=== PATIENT | female | born 1980 | race Caucasian/White ===

== ENCOUNTER 2016-03-07 11:35 | Outpatient (RCR) | payer MEDICARE ==
--- OUTSIDE RECORDS SUMMARY | 2016-03-03 10:54 | XMS REPORT | Continuity of Care Document ---
Author Author [facility] Organization [facility] Address Unknown Phone Unavailable Care Team Providers Care Modeler Name Role Phone TERA BOYD DO PCP Insurance Providers Payer Name Policy Number Subscriber Name Relationship [employer] [id number] Jori Cortes 17 Self / Same As Patient Advance Directives Directive Response Recorded Date/Time Advance Directives No 10/17/15 2:36pm Organ Donor Yes 10/17/15 2:36pm Resuscitation Status Full Code 10/17/15 2:36pm Problems Active Problems Medical Problem Onset Date Status Contusion, multiple sites Unknown Acute Headache Unknown Acute Migraine Unknown Acute Minor head injury without loss of consciousness Unknown Acute Minor head injury without loss of consciousness Unknown Acute Sprain of fourth finger of right hand Unknown Acute Tension type headache Unknown Acute Medications Current Home Medications Medication Dose Units Route Directions Days/Qty Instructions Start Date Tizanidine Hcl 4 Mg 4 Mg Oral Three Times A Day 11/09/12 Simvastatin 40 Mg 40 Mg Oral Bedtime 11/09/12 Duloxetine Hcl 60 Mg 60 Mg Oral Twice A Day 11/09/12 Metoprolol Succinate (Toprol Xl) 50 Mg 50 Mg Oral Daily 11/09/12 Amitriptyline Hcl 10 Mg 10 Mg Oral Bedtime 11/14/12 Levothyroxine Sodium 125 Mcg 125 Mcg Oral Daily 10/17/15 Omeprazole 40 Mg 40 Mg Oral Twice A Day 10/17/15 [Bcp] 1 Tab Oral Daily 10/17/15 Hydrocodone/Acetaminophen 1 Each 1-2 Each Oral Every 6 Hours as needed for Pain 10/17/15 Oxybutynin Chloride 5 Mg 5 Mg Oral Daily 10/17/15 Topiramate 50 Mg 50 Mg Oral Bedtime 10/17/15 Loratadine 10 Mg 10 Mg Oral Bedtime 10/17/15 Past Home Medications Medication Directions Ordered Status Tramadol Hcl 50 Mg Tab, 50 Mg Oral Three Times A Day 11/09/12 Discontinued [Bcp] , 11/09/12 Discontinued Levothyroxine Sodium (Levothroid) 50 Mcg Tablet, 75 Mcg Oral Daily 11/09/12 Discontinued Omeprazole 20 Mg Tablet.dr, 20 Mg Oral Daily 11/09/12 Discontinued Interferon Beta-1A/Albumin 44 Mcg/0.5 Ml Pen.injctr, 88 Mcg Sub-Q Three Times A Week 11/09/12 Discontinued Ethinyl Estradiol/Drospirenone 1 Each Tablet, 1 Each Oral 11/14/12 Discontinued Propoxyphene Hcl/Acetaminophen 1 Tab Tablet, 0 Oral Every 4HRS 11/14/12 Discontinued Naproxen Sodium 550 Mg Tablet, 550 Mg Oral Twice A Day 11/14/12 Discontinued Acetaminophen/Hydrocodone Bitart 1 Each Tablet, 1 - 2 Each Oral Every 6 Hours as needed 02/02/13 Discontinued Butalb/Acetaminophen/Caffeine (Fioricet) 1 Each Tablet, 1 Each Oral Q4hr Prn 11/27/13 Discontinued [Butoxeran] , Unknown Dose Oral Daily 03/11/14 Discontinued Tramadol Hcl 50 Mg Tablet, 50 Mg Oral Every 4HRS as needed for Pain 08/09/14 Discontinued Social History Social History Problem Response Recorded Date/Time Alcohol Use Rarely Uses 10/17/2015 2:36pm Recreational Drug Use No 10/17/2015 2:36pm Recent Foreign Travel No 10/17/2015 2:36pm Recent Infectious Disease Exposure No 10/17/2015 2:36pm Hospitalization with Isolation Denies 10/17/2015 2:36pm Smoking Status Former Smoker 10/17/2015 2:51pm Query Response Start Date Stop Date Smoking Status Former Smoker Hospital Discharge Instructions No hospital discharge instructions. Plan of Care Discharge Date 10/17/15 4:29pm Prescriptions See Medication Section Functional Status No functional status results. Allergies, Adverse Reactions, Alerts No known allergies. Immunizations No immunization records. Vital Signs Acute Vital Signs Vital Response Date/Time Temperature (Fahrenheit) 98.0 degrees F (97.6 - 99.5) 10/07/2015 9:38am Temperature (Calculated Celsius) 36.95794 degrees C (36.4 - 37.5) 10/07/2015 9:38am Temperature Source Tympanic 10/07/2015 9:38am Pulse Rate (adult) 102 bpm (60 - 90) 10/17/2015 2:36pm Respiratory Rate 18 bpm (12 - 24) 10/07/2015 9:38am O2 Sat by Pulse Oximetry 95 % (88 - 100) 10/17/2015 2:36pm Blood Pressure 131/81 mm Hg 10/17/2015 2:36pm Blood Pressure Mean 103 mm Hg 10/07/2015 9:38am Height (Feet) 5 feet 10/17/2015 2:36pm Height (Inches) 4.00 inches 10/17/2015 2:36pm Height (Calculated Centimeters) 162.338446 cm 10/17/2015 2:36pm Weight (Pounds) 256 pounds 10/17/2015 2:36pm Weight (Ounces) 0.0 oz 10/17/2015 2:36pm Weight (Calculated Grams) 942731.648 gm 10/17/2015 2:36pm Weight (Calculated Kilograms) 116.169723 kilograms 10/17/2015 2:36pm Calculated BMI 42.60 10/17/2015 2:36pm Results Pending Laboratory Results Test Name Collection Date/Time Procedures Procedure Status Date Provider(s) FNA W/IMAGE Completed 10/07/15 JULISA WEST MD Encounters Encounter Location Arrival/Admit Date Discharge/Depart Date Attending Provider Departed Clinic [facility] 10/17/15 2:29pm 10/17/15 4: 29pm WANDA REYES MD Registered Clinic [facility] 10/07/15 8:40am WANDA REYES MD
[2016-03-03 11:35] VITALS: BP 107/57
[2016-03-03] MEDS: CATHETER FLUSH 10 ML SYR IV PRN (12:38)
[2016-03-03] MEDS: Solu-MEDROL 1000 MG/NS 100 ML (DAILY) IV SCH ×2 (12:38)
[2016-03-03] MEDS: PANTOPRAZOLE 40 MG (PROTONIX) TAB PO SCH (12:39)
[2016-03-03 12:50] VITALS: BP 107/57
[2016-03-03 12:51] VITALS: BP 107/57
[2016-03-03] MEDS: inSUlin (REGULAR) HUMAN 1 UNIT/0.01 ML (CHARGE PER UNIT) SC SCH (14:10)
[2016-03-04 13:45] VITALS: BP 110/74
[2016-03-04] MEDS: PANTOPRAZOLE 40 MG (PROTONIX) TAB PO SCH (14:05)
[2016-03-04] MEDS: CATHETER FLUSH 10 ML SYR IV PRN (14:05)
[2016-03-04] MEDS: Solu-MEDROL 1000 MG/NS 100 ML (DAILY) IV SCH ×2 (14:06)
[2016-03-04] MEDS: inSUlin (REGULAR) HUMAN 1 UNIT/0.01 ML (CHARGE PER UNIT) SC SCH (14:06)
[2016-03-04 15:09] VITALS: BP 110/74
[2016-03-04 16:00] VITALS: BP 112/74
[2016-03-05 09:00] VITALS: BP 120/76
[2016-03-05] MEDS: inSUlin (REGULAR) HUMAN 1 UNIT/0.01 ML (CHARGE PER UNIT) SC SCH (09:05)
[2016-03-05] MEDS: CATHETER FLUSH 10 ML SYR IV PRN ×2 (09:06→10:30)
[2016-03-05] MEDS: PANTOPRAZOLE 40 MG (PROTONIX) TAB PO SCH (09:10)
[2016-03-05] MEDS: Solu-MEDROL 1000 MG/NS 100 ML (DAILY) IV SCH ×2 (09:29)
[2016-03-05 11:00] VITALS: BP 147/91
[2016-03-05 11:07] VITALS: BP 147/91
[2016-03-06 11:10] VITALS: BP 126/89
[2016-03-06] MEDS: PANTOPRAZOLE 40 MG (PROTONIX) TAB PO SCH (11:35)
[2016-03-06] MEDS: Solu-MEDROL 1000 MG/NS 100 ML (DAILY) IV SCH ×2 (11:35)
[~2016-03-07] VITALS: Ht 162.6 cm; Wt 116.1 kg
[~2016-03-07 11:35] MED LIST: ACHD5005 PO; ALPR0.25 PO; AMIT150T PO; AMT10T PO; ASPI-992 PO; BCP PO; BUTA-234 PO; CATHETER FLUSH 10 ML SYR IV PRN; CATHETER FLUSH 10 ML SYR IV SCH; CHOL5000 PO; DULO60CA6 PO; ETHI1TAB19 PO; HYDR-3454 PO; HYDR-3812 PO; HYDR-3816 PO; HYDR1TAB PO; INTE44PE SQ; KETO10TA PO; LEVO125T6 PO; LORA10TA76 PO; LVT.05T PO; MELA1TAB10 PO; METO-272 PO; MONT10TA24 PO; NAPR550T PO; NORE0.352 PO; OMEP20TA2 PO; OMEP40CA36 PO; OXYB5TAB PO; OXYB5TAB9 PO; PROP1TAB77 PO; SILV25CR TP; SIMV20TA3 PO; SIMV40TA4 PO; TIZA4CAP PO; TIZA4TAB3 PO; TOPI50CA5 PO; TOPI50TA13 PO; TRAM50TA2 PO; TRM50T PO; [UNRECOGNIZED DRUG - OTHER] PO; bcp
[2016-03-07 11:37] VITALS: BP 125/82
[2016-03-07] MEDS: PANTOPRAZOLE 40 MG (PROTONIX) TAB PO SCH (11:50)
[2016-03-07] MEDS: Solu-MEDROL 1000 MG/NS 100 ML (DAILY) IV SCH ×2 (11:50)
== END 2016-06-01 | disposition home or self-care (01) ==
LOC: SDC 11:35
PROVIDERS: ATTEND Psychiatry & Neurology Neurology
DX: G35 Multiple sclerosis (principal)
CPT/HCPCS: 82962; 96365

== ENCOUNTER → 2016-08-27 | Outpatient (CLI) | payer MEDICARE ==
[~2016-08-27] MED LIST changes: -CATHETER FLUSH 10 ML SYR IV PRN; -CATHETER FLUSH 10 ML SYR IV SCH
--- NOTE | 2016-08-27 17:53 | Diagnostic Imaging Report ---
INDICATION: Cough. EXAMINATION: PA and lateral views of the chest. FINDINGS: The heart size and vascularity are normal. Lungs are clear. There is no effusion. There is no acute bony abnormality. IMPRESSION: 1. No acute abnormality is seen. 2. There is no change from 11/19/13. Dictated by: Dictated on workstation # [id number]
== END ==
LOC: RAD 17:30
PROVIDERS: ATTEND Family Medicine
DX: R05 Cough (principal)
CPT/HCPCS: 71020

== ENCOUNTER 2016-09-22 09:25 | Outpatient (RCR) | payer MEDICARE, MEDICAID ==
[2016-09-20] MEDS: Solu-MEDROL 1000 MG/NS 100 ML (DAILY) IV SCH ×2 (15:20)
[2016-09-20] MEDS: CATHETER FLUSH 10 ML SYR IV PRN (15:20)
[2016-09-20 16:38] VITALS: BP 132/90
[2016-09-21] MEDS: CATHETER FLUSH 10 ML SYR IV PRN (10:26)
[2016-09-21] MEDS: Solu-MEDROL 1000 MG/NS 100 ML (DAILY) IV SCH ×2 (10:26)
[2016-09-21 11:43] VITALS: BP 120/80
[~2016-09-22] VITALS: Ht 162.6 cm; Wt 116.1 kg
[2016-09-22 09:25] VITALS: BP 155/80
[2016-09-22 09:30] VITALS: BP 155/80
[2016-09-22] MEDS: CATHETER FLUSH 10 ML SYR IV PRN (09:32)
[2016-09-22] MEDS: Solu-MEDROL 1000 MG/NS 100 ML (DAILY) IV SCH ×2 (09:32)
[2016-09-22 10:35] VITALS: BP 155/80
== END 2016-12-19 | disposition home or self-care (01) ==
LOC: SDC 09:25
PROVIDERS: ATTEND Psychiatry & Neurology Neurology
DX: G35 Multiple sclerosis (principal)
CPT/HCPCS: 96365

== ENCOUNTER → 2016-10-01 | Outpatient (CLI) | payer MEDICARE, MEDICAID ==
[~2016-10-01] MED LIST changes: +GADOBUTROL 15 MMOL/15 ML (GADAVIST) VIAL IV ONE
--- NOTE | 2016-10-01 11:26 | Diagnostic Imaging Report ---
PROCEDURE: MR imaging of the brain with and without contrast. TECHNIQUE: Multiplanar, multisequence MR imaging of the brain was performed with and without contrast. INDICATION: Multiple sclerosis. Worsening one month ago. Right-sided numbness. CONTRAST: 11 mL of Gadavist is administered intravenously. COMPARISON: No prior similar studies are available for comparison. FINDINGS: There is no diffusion restriction to suggest an acute infarct or other diffusion abnormality. The brain parenchyma demonstrates minimal periventricular subcentimeter T2 hyper intense lesions, which appear to involve as well the corpus callosum itself as demonstrated on sagittal FLAIR images, compatible with the provided history of multiple sclerosis. There is no significant surrounding edema or associated enhancement with these lesions however. There is no infratentorial lesion. A 3 mm juxtacortical lesion however is seen in the left frontal lobe. The total number of lesions counted on the sagittal T2 FLAIR images are 12, all are supratentorial. The pituitary gland is normal in size. No hypothalamic of pineal region mass. IMPRESSION: Multiple subcentimeter mostly periventricular T2 hyperintense lesions seen in the supratentorial white matter compatible with provided history of multiple sclerosis. No enhancing lesion seen. Dictated by: Dictated on workstation # [id number]
== END ==
LOC: RAD 09:07
PROVIDERS: ATTEND Psychiatry & Neurology Neurology
DX: G35 Multiple sclerosis (principal)
CPT/HCPCS: 70553

== ENCOUNTER 2018-09-07 18:27 | Emergency (ER) | payer MEDICARE, MEDICAID ==
[~2018-09-07] VITALS: Ht 167.6 cm; Wt 95.3 kg
[~2018-09-07 18:27] MED LIST changes: -GADOBUTROL 15 MMOL/15 ML (GADAVIST) VIAL IV ONE; +HYDR-34 PO; -HYDR-3454 PO; +HYDR-3455 PO; -HYDR-3812 PO; -HYDR-3816 PO
--- NOTE | 2018-09-07 19:23 | NUR ---
while in waiting room patient vomited. Pt is very unsteady on feet. Pt laying down in bed with lights off and towel over head for comfort. at bedside
[2018-09-07] MEDS ORDERED: PROCHLORPERAZINE 10 MG/2ML INJ (COMPAZINE) IM ONE (19:45)
[2018-09-07] MEDS ORDERED: diphenhydrAMINE 50 MG/ML INJ (BENADRYL) IM ONE (19:45)
[2018-09-07] MEDS ORDERED: KETOROLAC 60 MG/2 ML VIAL IM ONE (19:45)
--- NOTE | 2018-09-07 20:03 | ED Headache ---
General Chief Complaint: Head/Cervical Problems Stated Complaint: MIGRAINE Nursing Triage Note: migraine that started today, topiramate normally help but not today. pt having n/v, light sensitivity, volume sensitivity. Nursing Sepsis Screen: No Definite Risk Source: patient Exam Limitations: no limitations History of Present Illness Date Seen by Provider: Sep 07, 2018 Time Seen by Provider: 19:45 Allergies and Home Medications Allergies Coded Allergies: No Known Drug Allergies (Unverified , 03/02/11) Home Medications Alprazolam 0.25 Mg Tablet, 0.125-0.25 MG PO BID PRN for ANXIETY, (Reported) TAKES 1/2 TO 1 (0.25MG) TABLET Amitriptyline HCl 150 Mg Tablet, 150 MG PO HS, (Reported) Aspirin/Acetaminophen/Caffeine 1 Each Tablet, 2 TAB PO BID PRN for MIGRAINE, ( Reported) Cholecalciferol (Vitamin D3) 5,000 Unit Capsule, 5,000 UNIT PO DAILY, (Reported) Duloxetine Hcl 60 Mg Capsule.dr, 60 MG PO BID, (Reported) Hydrocodone Bit/Acetaminophen 1 Each Tablet, 1 TAB PO HS PRN for PAIN, (Reported ) Hydrocodone/Acetaminophen 1 Each Tablet, 1 EACH PO Q4H PRN for PAIN Prescribed by: WANDA REYES on 10/19/15 1320 Ketorolac Tromethamine 10 Mg Tablet, 10 MG PO QID PRN for MIGRAINE, (Reported) TAKES WHEN EXCEDRIN MIGRAINE DOES NOT WORK Levothyroxine Sodium 125 Mcg Tablet, 125 MCG PO DAILY, (Reported) Loratadine 10 Mg Tablet, 10 MG PO HS PRN for ALLERGIES, (Reported) Melatonin/Pyridoxine 1 Each Tablet, 3 MG PO HS, (Reported) Metoprolol Succinate 50 Mg Tab.sr.24h, 50 MG PO DAILY, (Reported) Montelukast Sodium 10 Mg Tablet, 10 MG PO HS, (Reported) Norethindrone 0.35 Mg Tablet, 0.35 MG PO DAILY, (Reported) Omeprazole 40 Mg Capsule.dr, 40 MG PO BID, (Reported) Oxybutynin Chloride 5 Mg Tab.er.24, 5 MG PO DAILY, (Reported) Simvastatin 20 Mg Tablet, 20 MG PO DAILY, (Reported) Tizanidine HCl 4 Mg Tablet, 4 MG PO BID, (Reported) Tizanidine HCl 4 Mg Tablet, 4 MG PO 1200 PRN for MUSCLE SPASMS, (Reported) Topiramate 50 Mg Tablet, 50 MG PO HS, (Reported) Past Zmiolcz-Xubgcu-Nuomov Hx Patient Social History Former Smoker, Quit: Oct 16, 1997 Recent Foreign Travel: No Contact w/Someone Who Travel: No Recent Infectious Disease Expo: No Recent Hopitalizations: No Physical Abuse: No Sexual Abuse: No Mistreated: No Fear: No Past Medical History Gallbladder Headaches /Migraines, Multiple Sclerosis Last Menstrual Period: Aug 05, 2018 Reproductive Disorders: Yes Female Reproductive Disorders: Denies, Polycystic Ovarian Dis Sexually Transmitted Disease: No HIV/AIDS: No Gastroesophageal Reflux Fibromyalgia Hypothyroidsim Depression Adverse Reaction/Blood Tranf: No Family Medical History Alcoholism 19 FATHER 19 MOTHER grandparents Completed stroke grandparents FH: leukemia 19 FATHER Respiratory disorder grandparents (lung and liver ca) No Pertinent Family Hx Physical Exam Vital Signs Vital Signs - First Documented 09/07/18 18:43 Temp 97.6 Pulse 87 Resp 20 B/P (MAP) 210/102 (138) Pulse Ox 100 O2 Delivery Room Air Capillary Refill : Less Than 3 Seconds Height, Weight, BMI Height: 5'6.00" Weight: 210lbs. 0.0oz. 95.945167ku; 43.9 BMI Method:Stated Progress/Results/Core Measures Results/Orders My Orders Orders - LEIGHTON GUTIERREZ Ketorolac Injection (Toradol Injection) (09/07/18 19:45) Prochlorperazine Injection (Compazine In (09/07/18 19:45) Diphenhydramine Injection (Benadryl Inje (09/07/18 19:45) Medications Given in ED Current Medications Medications Dose Ordered Sig/Gilberto Route Start Time Stop Time Status Last Admin Dose Admin Diphenhydramine HCl 50 mg ONCE ONCE IM 09/07/18 19:45 09/07/18 19:46 DC 09/07/18 19:54 50 MG Ketorolac Tromethamine 60 mg ONCE ONCE IM 09/07/18 19:45 09/07/18 19:46 DC 09/07/18 19:55 60 MG Prochlorperazine Edisylate 10 mg ONCE ONCE IM 09/07/18 19:45 09/07/18 19:46 DC 09/07/18 19:54 10 MG Vital Signs/I&O 09/07/18 18:43 Temp 97.6 Pulse 87 Resp 20 B/P (MAP) 210/102 (138) Pulse Ox 100 O2 Delivery Room Air Blood Pressure Mean: 138 Departure Impression Primary Impression: Migraine Disposition: 01 HOME, SELF-CARE Condition: Stable/Unchanged Departure-Patient Inst. Decision time for Depature: 20:47 Referrals: TERA BOYD DO (PCP/Family) Primary Care Physician Patient Instructions: Migraine Headaches in Adults Add. Discharge Instructions: Continue your home medications as previously prescribed. Follow-up with her primary care provider as needed. Return back to the emergency room for worsening symptoms or concerns as needed. All discharge instructions reviewed with patient and/or family. Voiced understanding. LEIGHTON GUTIERREZ Sep 07, 2018 20:03
[2018-09-07 21:05] VITALS: BP 168/78
== END 2018-09-07 20:56 | disposition home or self-care (01) ==
LOC: EDUNIT# 18:27 → ER 18:29
DX: G43.909 Migraine, unspecified, not intractable, without status migrainosus (principal); G35 Multiple sclerosis; M79.7 Fibromyalgia; K21.9 Gastro-esophageal reflux disease without esophagitis; E03.9 Hypothyroidism, unspecified; F32.9 Major depressive disorder, single episode, unspecified; Z79.82 Long term (current) use of aspirin; Z87.891 Personal history of nicotine dependence; Z87.448 Personal history of other diseases of urinary system; Z80.6 Family history of leukemia; Z80.1 Family history of malignant neoplasm of trachea, bronchus and lung; Z80.0 Family history of malignant neoplasm of digestive organs
CPT/HCPCS: 99284

== ENCOUNTER 2019-02-17 13:43 | Outpatient (RCR) | payer MEDICARE, MEDICAID ==
[~2019-02-17 13:43] MED LIST changes: +OMEP40CA27 PO; -OMEP40CA36 PO; -OXYB5TAB PO; +OXYB5TAB13 PO; +OXYB5TAB3 PO; -OXYB5TAB9 PO; +SIMV20TA26 PO; -SIMV20TA3 PO; -TIZA4TAB3 PO; +TIZA4TAB4 PO
== END 2019-03-02 15:25 | disposition home or self-care (01) ==
PROVIDERS: ATTEND Family Medicine
DX: G35 Multiple sclerosis (principal); Z87.828 Personal history of other (healed) physical injury and trauma

== ENCOUNTER → 2020-02-09 | Outpatient (CLI) | payer MEDICARE, MEDICAID ==
[~2020-02-09] MED LIST changes: -NORE0.352 PO; +NORE0.3548 PO; +OXYB-52 PO; -OXYB5TAB3 PO
--- NOTE | 2020-02-09 10:16 | Diagnostic Imaging Report ---
EXAMINATION: Bilateral breast ultrasound limited. INDICATION: Bilateral breast masses. FINDINGS: The diagnostic mammogram performed earlier today failed to show any sign of a solid mass in the area of the patient's palpable abnormality in the 12 o'clock position of each breast. On this study, there is no discrete solid or cystic mass identified. It may be that the palpable abnormality in question is related to fibroglandular tissue alone; however, if clinical concern regarding an underlying abnormality persists, then biopsy should still be considered. IMPRESSION: There is no evidence for malignancy or for a cyst. Clinical followup is recommended. ACR BI-RADS Category 1: Negative. Dictated by: Dictated on workstation # [id number]
--- NOTE | 2020-02-09 16:15 | Diagnostic Imaging Report ---
EXAMINATION: Digital mammogram bilateral diagnostic with CAD. INDICATION: Bilateral breast lumps. COMPARISON: This study was compared to the prior exam of 08/06/2014. PERSONAL HISTORY: At this time, the patient complains of lumps in the 12 o'clock position of each breast. TECHNIQUE: Markers were placed over the area of concern. There is no primary or secondary sign of malignancy in either region. Even so, I would recommend that ultrasound of both breasts be performed for further study. The fibroglandular tissue in each breast is heterogeneously dense. This does limit the sensitivity of this exam. Overall, there does not appear to have been any significant change when compared to the prior study. There is no primary or secondary sign of malignancy identified. IMPRESSION: 1. There is no evidence for malignancy. 2. Ultrasound of both breasts is pending for further evaluation. ACR BI-RADS Category 0: Incomplete. (Needs additional imaging evaluation). Result letter will be mailed to the patient. Note: At least 10% of breast cancer is not imaged by mammography. Dictated by: Dictated on workstation # [id number]
== END ==
LOC: RAD 08:26
PROVIDERS: ATTEND Obstetrics & Gynecology
DX: Z12.31 Encounter for screening mammogram for malignant neoplasm of breast (principal); N63.20 Unspecified lump in the left breast, unspecified quadrant; N63.10 Unspecified lump in the right breast, unspecified quadrant
CPT/HCPCS: 76642; 77066; G0279; 77062

== ENCOUNTER 2021-07-04 05:32 | Outpatient (CLI) | payer MEDICARE, MEDICAID ==
[~2021-07-04] VITALS: Ht 160 cm; Wt 104.1 kg
[~2021-07-04 05:32] MED LIST changes: -OMEP40CA27 PO; +OMEP40CA6 PO; +TIZA-186 PO; -TIZA4TAB4 PO
[2021-07-04] MEDS ORDERED: DOXE10CA29 PO (15:07)
== END 2021-07-04 15:18 | disposition home or self-care (01) ==
LOC: PREOP 05:32
PROVIDERS: ATTEND Obstetrics & Gynecology
DX: Z01.818 Encounter for other preprocedural examination (principal)

== ENCOUNTER 2021-07-11 07:03 | Day surgery (SDC) | payer MEDICARE, MEDICAID ==
[~2021-07-11] VITALS: Ht 160 cm; Wt 104.1 kg
[2021-07-11] VITALS (11 sets, daily range): BP systolic 114–149; BP diastolic 51–90
[~2021-07-11 07:03] MED LIST changes: +DOXE10CA29 PO
[2021-07-11] MEDS ORDERED: ceFAZolin 2 GM IV Premixed 50 ML IV ONE (07:15)
[2021-07-11 07:37] LABS: BASOPHILS % (AUTO) 0 % (0-10); EOSINOPHILS # (AUTO) 0.2 10^3/uL (0.0-0.3); EOSINOPHILS % (AUTO) 2 % (0-10); HEMATOCRIT 43 % (35-52); HEMOGLOBIN 13.6 g/dL (11.5-16.0); LYMPHOCYTES # (AUTO) 2.4 10^3/uL (1.0-4.0); LYMPHOCYTES % (AUTO) 32 % (12-44); MEAN CORPUSCULAR HEMOGLOBIN 29 pg (25-34); MEAN CORPUSCULAR HGB CONC 32 g/dL (32-36); MEAN CORPUSCULAR VOLUME 91 fL (80-99); MEAN PLATELET VOLUME 11.8 fL (9.0-12.2); MONOCYTES # (AUTO) 0.5 10^3/uL (0.0-1.0); MONOCYTES % (AUTO) 6 % (0-12); NEUTROPHILS # (AUTO) 4.5 10^3/uL (1.8-7.8); NEUTROPHILS % (AUTO) 60 % (42-75); PLATELET COUNT 225 10^3/uL (130-400); WHITE BLOOD COUNT 7.5 10^3/uL (4.3-11.0)
[2021-07-11] MEDS: LACTATED RINGERS 1,000 ML IV PRN ×2 (07:47→10:03)
[2021-07-11] MEDS ORDERED: ONDANSETRON 4 MG/2 ML (SDV) Z0FRAN ONE (08:07)
[2021-07-11] MEDS ORDERED: MIDAZOLAM 2 MG/2 ML (VERSED) VIAL ONE (08:07)
[2021-07-11] MEDS ORDERED: NEOSTIGMINE 3 MG/3 ML VIAL ONE (08:07)
[2021-07-11] MEDS ORDERED: fentaNYL INJ 100 MCG/2 ML AMP ONE (08:07)
[2021-07-11] MEDS ORDERED: GLYCOPYRROLATE 0.2 MG/ML (ROBINUL) 2 ML VIAL ONE (08:07)
[2021-07-11] MEDS ORDERED: proPOfol 200 MG/20 ML (DIPRIVAN) VIAL IV ONE (08:07)
[2021-07-11] MEDS ORDERED: ROCURONIUM 10 MG/ML 5 ML SYRINGE IV ONE (08:07)
[2021-07-11] MEDS ORDERED: LIDOCAINE PF 2% 5 ML (XYLOCAINE) VIAL ONE (08:07)
[2021-07-11] MEDS ORDERED: BUPIVACAINE 0.25% 30 ML (SENSORCAINE) VIAL ONE (08:16)
--- NOTE | 2021-07-11 08:38 | Progress Note-Pre Operative ---
Pre-Operative Progress Note H&P Reviewed The H&P was reviewed, patient examined and no changes noted. Date Seen by Provider: Jul 11, 2021 Time Seen by Provider: 08:30 Date H&P Reviewed: Jul 11, 2021 Time H&P Reviewed: 08:30 Pre-Operative Diagnosis: misplaced IUD, abnormal uterine bleeding, ovarian cyst HEMA WISE DO Jul 11, 2021 08:38
[2021-07-11] MEDS ORDERED: SUCCINYLCHOLINE INJ 20 MG/1 ML 10 ML VIAL ONE (09:48)
[2021-07-11] MEDS ORDERED: ESMOLOL 100 MG/10 ML (BREVIBLOC) VIAL ONE (10:29)
[2021-07-11] MEDS ORDERED: KETOROLAC 30 MG/ML VIAL ONE (10:33)
[2021-07-11] MEDS ORDERED: IBUP-844 PO (10:43)
[2021-07-11] MEDS ORDERED: OXC5T PO (10:43)
[2021-07-11] MEDS ORDERED: ACET-93 PO (10:43)
[2021-07-11] MEDS ORDERED: KETOROLAC 30 MG/ML VIAL IVP ONE (10:45)
[2021-07-11] MEDS ORDERED: ACETAMINOPHEN 500 MG TAB (TYLENOL) PO PRN (10:45)
--- NOTE | 2021-07-11 10:46 | Discharge Inst-Women's Service ---
Discharge Inst-Women's Serv Depart Medication/Instructions New, Converted or Re-Newed RX: Transmitted to Pharmacy (oxycodone previously sent to pharmacy) Final Diagnosis bilateral tubal cysts pelvic pain from IUD abnormal uterine bleeding left omental adhesions Problems Reviewed?: Yes Consults/Follow Up Additional Follow Up: Yes (1-2 weeks for incision check) Activity Activity: Activity as Tolerated Driving Instructions: No Driving for 24 Hours NO SMOKING: NO SMOKING Nothing Inside Vagina: No Douching, No [place], No Tampons Diet Discharge Diet: No Restrictions Symptoms to Report to : Bleeding Excessive, Pain Increased, Fever Over 101 Degrees F, Vaginal Bleeding Increase, Cramps in Feet or Legs, Vaginal Discharge Foul For Any Problems or Questions: Contact Your Physician Skin/Wound Care Infection Signs and Symptoms: Increased Redness, Foul Odor of Wound, Increased Drainage, Skin Itchy or Has a Rash, Increased Swelling, Temperature Above 101 F Operative Area Clean and Dry: You May Remove Bandage (in 72 hours or if soiled or wet) Stitches/[place]/Dermabond: Dermabond Bathing Instructions: HEMA Mukherjee DO Jul 11, 2021 10:46
[2021-07-11] MEDS ORDERED: morphine INJ 10 MG/ML 1ML (SYR OR VIAL) IVP ONE (11:00)
[2021-07-11] MEDS ORDERED: ONDANSETRON 4 MG/2 ML (SDV) Z0FRAN IVP PRN (11:00)
[2021-07-11] MEDS ORDERED: HYDROmorphone 2 MG/ML VIAL (DILAUDID) IV ONE (11:00)
[2021-07-11] MEDS ORDERED: SEVOFLURANE (ULTANE) 15 ML INHAL SOLN ONE (11:03)
[2021-07-11] MEDS ORDERED: morphine INJ 10 MG/ML 1ML (SYR OR VIAL) ONE (11:18)
[2021-07-11] MEDS ORDERED: IBUPROFEN 600 MG (MOTRIN) TAB PO SCH (12:00)
--- NOTE | 2021-07-11 14:09 | Operative Report ---
Operative Report Date of Procedure/Surgery Jul 11, 2021 Surgeon (s) HEMA WISE DO Hand Meat Salter (s): NA Post-Operative Diagnosis pelvic pain abnormal uterine bleeding IUD in place omental adhesions Procedure Performed laparoscopic bilateral salpingectomy lysis of adhesions removal of IUD Rubina endometrial ablation Description of Procedure Anesthesia Type: General Estimated blood loss (mL): minimal Specimen(s) collected/removed bilateral tubes Description of the Procedure This patient has had abnormal uterine bleeding that has not been controlled with oral medications or a progestin containing IUD. She has had a negative endometrial biopsy. She has had pain in the pelvis since the IUD was placed and has been concerned with misplacement. The most recent US showed that the uterus was in the uterus but the patient has requested removal as she is still bleeding and the pain did not start until the IUD was placed. She had a follow up US last week that showed some resolution of a previously seen right ovarian cyst. she has been offered and declined hysterectomy as she wishes to have a shorter down time. with informed consent the patient was taken to the operating room where general anesthesia was found to be adequate. She was then prepped and draped in a usual sterile fashion in a dorsolithotomy position. The bladder was drained of clear yellow urine with a straight cath. A speculum was then placed in the vagina and the cervix was grasped with a tenaculum. The IUD strings were seen looped in the cervical os, so they were teased down and then the IUD was removed with ring forceps. A Morrison uterine manipulator was then inserted to provide a means of manipulation of the uterus. Attention was now turned to the abdomen. The umbilicus was then injected with 0.25% Marcaine and a 5 mm skin incision was made. A 5 mm trocar was inserted under direct visualization with the optiview and intraabdominal placement was confirmed. The abdomen was insufflated with warmed CO2 gas to a maximum pressure of 15 mmHg. Two additional trocars were placed in the left lower quadrant lateral to the rectus muscles and avoiding the inferior epigastric vessels. The lower one was a 12 mm and the upper 5 mm. I then did a survey of the pelvis. There were not any ovarian cysts, but there were peritubal cysts bilaterally. There was an omental adhesion in the lower abdomen to the abdominal wall and this was taken down in a sharp fashion and with cautery. this allowed me to better see the uterus, which appears normal. I now proceeded with bilateral salpingectomy. I utilized the Ligasure to incise the mesosaplinx bilaterally and then clamped across the tubal insertion at the fundus. I then removed both tubes and the tubal cysts through the trocar and sent for pathology. The instruments were now removed from the abdomen and the fascial incision of the lower incision was repaired with a figure of eight stitch of 0-Vicryl. and skin incisions were closed with 4-0 Monocryl and Skin Affix and then bandages were placed. Attention was returned to the vagina. The manipulator was removed from the uterus and the cervix was gently dilated to allow insertion of the Rubina endometrial ablation. Uterine cavity measurements were then taken and the Rubina device was inserted in standard fashion. The compliance test was initiated and passed. Once this passed, the procedure was initiated and after standard 120 seconds, the ablation was completed. The instrument was removed from the uterus and the tenaculum was removed from the cervix. There was minimal bleeding noted. The patient was now awakened and taken to recovery in a stable condition. Sponge, lap, needle and instrument counts were correct times two. Findings of the Procedure omentum densely adherent to abdominal wall bilateral peritubal cysts Allergies and Home Medications Allergies Coded Allergies: mushroom (Verified Allergy, Unknown, 07/04/21) Patient Home Medication List Home Medication List Reviewed: Yes Acetaminophen (Acetaminophen) 500 Mg Tablet, 1,000 MG PO Q8H PRN for PAIN-MILD (1-4) Prescribed by: HEMA WISE on 07/11/21 1043 Alprazolam (Xanax) 0.25 Mg Tablet, 0.125-0.25 MG PO BID PRN for ANXIETY, (Reported) Entered as Reported by: DULCE SCHAEFER on 10/19/15 1535 Aspirin/Acetaminophen/Caffeine (Excedrin Extra Strength Caplet) 1 Each Tablet, 2 TAB PO BID PRN for MIGRAINE, (Reported) Entered as Reported by: DULCE SCHAEFER on 10/19/15 1543 Butalb/Acetaminophen/Caffeine (Vbxdgx-Sejazuqp-Gvkp 50-300-40) 1 Each Capsule, 1 EACH PO Q4H PRN for HEADACHE Prescribed by: ELXIE HODGES on 07/15/21 1646 Cholecalciferol (Vitamin D3) (Vitamin D3) 5,000 Unit Capsule, 5,000 UNIT PO DAILY, (Reported) Entered as Reported by: DULCE SCHAEFER on 10/19/15 1543 Last Action: Last Taken Edited Doxepin HCl (Doxepin HCl) 10 Mg Capsule, 10-20 MG PO HS, (Reported) Entered as Reported by: MARLON DURAN on 07/04/21 1507 Last Action: Last Taken Edited Duloxetine Hcl (Cymbalta) 60 Mg Capsule.dr, 60 MG PO DAILY, (Reported) Entered as Reported by: DAVID ROSE on 11/09/12 0400 Last Action: Last Taken Edited Ibuprofen (Ibu) 600 Mg Tablet, 600 MG PO Q6HR Prescribed by: HEMA WISE on 07/11/21 1043 Levothyroxine Sodium (Levothyroxine Sodium) 125 Mcg Tablet, 125 MCG PO DAILY, (Reported) Entered as Reported by: TITUS MCNAIR on 10/17/15 1445 Last Action: Last Taken Edited Loratadine (Claritin) 10 Mg Tablet, 10 MG PO HS PRN for ALLERGIES, (Reported) Entered as Reported by: TITUS MCNAIR on 10/17/15 1445 Metoprolol Succinate (Metoprolol Succinate Xl 50 Mg) 50 Mg Tab.sr.24h, 50 MG PO DAILY, (Reported) Entered as Reported by: DAVID ROSE on 11/09/12 0400 Last Action: Last Taken Edited Montelukast Sodium (Montelukast Sodium) 10 Mg Tablet, 10 MG PO HS, (Reported) Entered as Reported by: DULCE SCHAEFER on 10/19/15 1535 Last Action: Last Taken Edited Omeprazole (Omeprazole) 40 Mg Capsule.dr, 40 MG PO BID, (Reported) Entered as Reported by: TITUS MCNAIR on 10/17/15 1445 Last Action: Last Taken Edited Ondansetron (Ondansetron Odt) 4 Mg Tab.rapdis, 4 MG PO Q8H PRN for nausea Prescribed by: JARED DIAZ on 07/15/21 0537 Oxybutynin Chloride (Oxybutynin Chloride ER) 5 Mg Tab.er.24, 5 MG PO DAILY, (Reported) Entered as Reported by: DULCE SCHAEFER on 10/19/151534 Last Action: Last Taken Edited Oxycodone Hcl (Oxyir Tablet) 5 Mg Tab, 5 MG PO Q4H PRN for PAIN-SEVERE (8-10) Prescribed by: HEMA WISE on 07/11/21 1043 Simvastatin (Simvastatin) 20 Mg Tablet, 40 MG PO DAILY, (Reported) Entered as Reported by: DULCE SCHAEFER on 10/19/151534 Last Action: Last Taken Edited Tizanidine HCl (Tizanidine HCl) 4 Mg Tablet, 4 MG PO BID, (Reported) Entered as Reported by: DULCE SCHAEFER on 10/19/151534 Last Action: Last Taken Edited Tizanidine HCl (Tizanidine HCl) 4 Mg Tablet, 4 MG PO 1200 PRN for MUSCLE SPASMS, (Reported) Entered as Reported by: DULCE SCHAEFER on 10/19/15 154 Topiramate (Topiramate) 50 Mg Tablet, 50 MG PO HS, (Reported) Entered as Reported by: DULCE SCHAEFER on 10/19/151534 Last Action: Last Taken Edited HEMA WISE DO Jul 11, 2021 14:09
--- NOTE | 2021-07-11 14:28 | Anesthesia-General Post-Op ---
General Patient Condition Mental Status/LOC: Same as Preop Cardiovascular: Satisfactory Nausea/Vomiting: Absent Respiratory: Satisfactory Pain: Controlled Complications: Absent Post Op Complications Complications None Follow Up Care/Instructions Patient Instructions None needed. Anesthesia/Patient Condition Patient Condition Patient was doing well after the procedure, no complaints, stable vital signs, no apparent adverse anesthesia problems. LIGIA REDMOND DO Jul 11, 2021 14:28
== END 2021-07-11 13:25 | disposition home or self-care (01) ==
LOC: SDC 07:03
PROVIDERS: ATTEND Obstetrics & Gynecology
DX: N83.8 Other noninflammatory disorders of ovary, fallopian tube and broad ligament (principal); T83.39XA Other mechanical complication of intrauterine contraceptive device, initial encounter; N93.8 Other specified abnormal uterine and vaginal bleeding; R10.2 Pelvic and perineal pain; K66.0 Peritoneal adhesions (postprocedural) (postinfection); E66.01 Morbid (severe) obesity due to excess calories; N83.201 Unspecified ovarian cyst, right side; N94.5 Secondary dysmenorrhea; Z68.41 Body mass index [BMI] 40.0-44.9, adult; Z79.891 Long term (current) use of opiate analgesic; Z79.899 Other long term (current) drug therapy; Z87.891 Personal history of nicotine dependence; Z98.890 Other specified postprocedural states
CPT/HCPCS: 36415; 84703; 85025; 87081; 88305

== ENCOUNTER 2021-07-15 04:17 | Emergency (ER) | payer MEDICARE, MEDICAID ==
[~2021-07-15 04:17] MED LIST changes: +ACET-93 PO; +IBUP-844 PO; +OXC5T PO
--- NOTE | 2021-07-15 04:39 | ED Headache ---
General Chief Complaint: Head/Cervical Problems Stated Complaint: MIGRAINE Source: patient, family () Exam Limitations: no limitations History of Present Illness Date Seen by Provider: Jul 15, 2021 Time Seen by Provider: 04:26 Initial Comments Patient is a 41yo female with a past history of migraines who presents to the ER with complaint of migraine onset about 8am this morning on wakening. Bitemporal and down the left side of her neck. Typical symptoms for her. Light and loud noises make it worse. She feels a little better laying down. She has not had one this bad in a long time. Has been taking excedrin migraine all day - last dose 2 pills about 9pm. She is nauseated, but unable to vomit due to abdominal discomfort. Had surgery with Dr Wise 5 days ago - uterine ablation and bilateral salpingectomy. No complaints of recent illness. No f/c/cough/SOB. No urinary or GI complaints other than the nausea. Is on daily Topamax. Sees Dr Serna as her neurologist - also has a history of MS. No muscle weakness. No paresthesias. No skipped or missed medications. All other ROS reviewed and negative except as stated. Timing/Duration: other (20 hours or so (8am)) Severity/Quality: severe, achy, pressure, throbbing Location: frontal, occipital, other (into neck) Prior Headaches/Recent Trauma: chronic headaches Modifying Factors: worse with exposure to light; improves with other (loud sounds) Associated Symptoms: other (nausea) Allergies and Home Medications Allergies Coded Allergies: mushroom (Verified Allergy, Unknown, 07/04/21) Patient Home Medication List Home Medication List Reviewed: Yes Acetaminophen (Acetaminophen) 500 Mg Tablet, 1,000 MG PO Q8H PRN for PAIN-MILD (1-4) Prescribed by: HEMA WISE on 07/11/21 1043 Alprazolam (Xanax) 0.25 Mg Tablet, 0.125-0.25 MG PO BID PRN for ANXIETY, (Reported) Entered as Reported by: DULCE SCHAEFER on 10/19/15 1535 Aspirin/Acetaminophen/Caffeine (Excedrin Extra Strength Caplet) 1 Each Tablet, 2 TAB PO BID PRN for MIGRAINE, (Reported) Entered as Reported by: DULCE SCHAEFER on 10/19/15 1543 Cholecalciferol (Vitamin D3) (Vitamin D3) 5,000 Unit Capsule, 5,000 UNIT PO DAILY, (Reported) Entered as Reported by: DULCE SCHAEFER on 10/19/15 1543 Doxepin HCl (Doxepin HCl) 10 Mg Capsule, 10-20 MG PO HS, (Reported) Entered as Reported by: MARLON DURAN on 07/04/21 1507 Duloxetine Hcl (Cymbalta) 60 Mg Capsule.dr, 60 MG PO DAILY, (Reported) Entered as Reported by: DAVID ROSE on 11/09/12 0400 Ibuprofen (Ibu) 600 Mg Tablet, 600 MG PO Q6HR Prescribed by: HEMA WISE on 07/11/21 1043 Levothyroxine Sodium (Levothyroxine Sodium) 125 Mcg Tablet, 125 MCG PO DAILY, (Reported) Entered as Reported by: TITUS MCNAIR on 10/17/15 1445 Loratadine (Claritin) 10 Mg Tablet, 10 MG PO HS PRN for ALLERGIES, (Reported) Entered as Reported by: TITUS MCNAIR on 10/17/15 1445 Metoprolol Succinate (Metoprolol Succinate Xl 50 Mg) 50 Mg Tab.sr.24h, 50 MG PO DAILY, (Reported) Entered as Reported by: DAVID ROSE on 11/09/12 040 Montelukast Sodium (Montelukast Sodium) 10 Mg Tablet, 10 MG PO HS, (Reported) Entered as Reported by: DULCE SCHAEFER on 10/19/15 1535 Omeprazole (Omeprazole) 40 Mg Capsule.dr, 40 MG PO BID, (Reported) Entered as Reported by: TITUS MCNAIR on 10/17/15 1445 Oxybutynin Chloride (Oxybutynin Chloride ER) 5 Mg Tab.er.24, 5 MG PO DAILY, (Reported) Entered as Reported by: DULCE SCHAEFER on 10/19/15 1535 Oxycodone Hcl (Oxyir Tablet) 5 Mg Tab, 5 MG PO Q4H PRN for PAIN-SEVERE (8-10) Prescribed by: HEMA WISE on 07/11/21 1043 Simvastatin (Simvastatin) 20 Mg Tablet, 40 MG PO DAILY, (Reported) Entered as Reported by: DULCE SCHAEFER on 10/19/15 1535 Tizanidine HCl (Tizanidine HCl) 4 Mg Tablet, 4 MG PO BID, (Reported) Entered as Reported by: DULCE SCHAEFER on 10/19/15 1535 Tizanidine HCl (Tizanidine HCl) 4 Mg Tablet, 4 MG PO 1200 PRN for MUSCLE SPASMS, (Reported) Entered as Reported by: DULCE SCHAEFER on 10/19/15 1543 Topiramate (Topiramate) 50 Mg Tablet, 50 MG PO HS, (Reported) Entered as Reported by: DULCE SCHAEFER on 10/19/15 1535 Discontinued Medications Hydrocodone Bit/Acetaminophen (Lortab 7.5 Mg Tablet) 1 Each Tablet, 1 TAB PO HS PRN for PAIN, (Reported) Discontinued Reason: New Order Entered as Reported by: DULCE SCHAEFER on 10/19/15 1535 Review of Systems Review of Systems Constitutional: see HPI Eyes: No Symptoms Reported Ears, Nose, Mouth, Throat: no symptoms reported Respiratory: no symptoms reported Cardiovascular: no symptoms reported Gastrointestinal: nausea Genitourinary: no symptoms reported Musculoskeletal: no symptoms reported Skin: no symptoms reported Psychiatric/Neurological: Headache All Other Systems Reviewed Negative Unless Noted: Yes Past Eraxclf-Cvvakr-Digwnw Hx Seasonal Allergies Seasonal Allergies: Yes Past Medical History Surgeries: Yes (several D&C, left ovarian cyst removal. wisdom teeth, bilat foot sx) Gallbladder Respiratory: No Currently Using CPAP: No Currently Using BIPAP: No Cardiac: Yes High Cholesterol, Hypertension Neurological: Yes Headaches /Migraines, Multiple Sclerosis Reproductive Disorders: Yes Female Reproductive Disorders: Ovarian Cyst, Polycystic Ovarian Dis Sexually Transmitted Disease: No HIV/AIDS: No Genitourinary: Yes (OAB) Kidney Stones Gastrointestinal: Yes (GASTRIC PERESIS) Gastroesophageal Reflux, Gall Bladder Disease Musculoskeletal: Yes Fibromyalgia Endocrine: Yes (BORDERLINE TYPE ii DM) Hypothyroidsim HEENT: No Cancer: No Psychosocial: Yes Sleep Difficulties, Anxiety, Depression Integumentary: Yes Psoriasis Blood Disorders: No Adverse Reaction/Blood Tranf: No Family Medical History Alcoholism 19 FATHER 19 MOTHER grandparents Completed stroke grandparents FH: leukemia 19 FATHER Respiratory disorder grandparents (lung and liver ca) No Pertinent Family Hx Physical Exam Vital Signs Vital Signs - First Documented 07/15/21 04:27 Temp 36.8 Pulse 91 Resp 16 B/P (MAP) 138/108 (118) Pulse Ox 98 O2 Delivery Room Air Capillary Refill : Height, Weight, BMI Height: 5'6.00" Weight: 210lbs. 0.0oz. 95.517181bj; 40.66 BMI Method:Stated General Appearance: WD/WN, moderate distress HEENT: PERRL/EOMI (pupil 4-5 ), pharynx normal, other (appears a little dry) Neck: non-tender, full range of motion, supple Cardiovascular: regular rate, rhythm Respiratory: lungs clear, normal breath sounds, no respiratory distress, no accessory muscle use Gastrointestinal: normal bowel sounds, non tender, soft Extremities: normal range of motion, non-tender, normal inspection, no pedal edema, no calf tenderness Psychiatric: alert, oriented x 3 Crainal Nerves: normal hearing, normal speech, PERRL; No abnormal speech, No facial asymmetry, No facial paresthesias, No facial weakness, No gaze palsy, No tongue deviation to R, No tongue deviation to L Coordination/Gait: normal gait Motor/Sensory: no motor deficit, no sensory deficit, no pronator drift; No sensory deficit Skin: normal color, warm/dry Progress/Results/Core Measures Results/Orders My Orders Orders - JARED DIAZ MD Ed Iv/Invasive Line Start (07/15/21 04:32) Ketorolac Injection (Toradol Injection) (07/15/21 04:45) Prochlorperazine Injection (Compazine In (07/15/21 04:45) Ns Iv 1000 Ml (Sodium Chloride 0.9%) (07/15/21 04:45) Diphenhydramine Injection (Benadryl Inje (07/15/21 04:45) Medications Given in ED Current Medications Medications Dose Ordered Sig/Gilberto Route Start Time Stop Time Status Last Admin Dose Admin Diphenhydramine HCl 25 mg ONCE ONCE IVP 07/15/21 04:45 07/15/21 04:46 DC 07/15/21 04:49 25 MG Ketorolac Tromethamine 30 mg ONCE ONCE IVP 07/15/21 04:45 07/15/21 04:46 DC 07/15/21 04:51 30 MG Prochlorperazine Edisylate 10 mg ONCE ONCE IV 07/15/21 04:45 07/15/21 04:46 DC 07/15/21 04:53 10 MG Vital Signs/I&O 07/15/21 04:27 Temp 36.8 Pulse 91 Resp 16 B/P (MAP) 138/108 (118) Pulse Ox 98 O2 Delivery Room Air Progress Progress Note : Time: 05:33 Progress Note Reassessed patient - feeling much better. Requested some ice chips as nausea is resolved. Will let her sit another few minutes and continue to improve. She states she has some muscle relaxers at home. Does not request any other medications for home at this time. Recommend her to follow up with her primary care physician. Comfortable with plan of care - all questions are sought and answered. Departure Impression Primary Impression: Migraine Qualified Codes: G43.009 - Migraine without aura, not intractable, without status migrainosus Disposition: HOME, SELF-CARE Condition: Improved Departure-Patient Inst. Decision time for Depature: 05:35 Referrals: TERA BOYD DO (PCP/Family) Primary Care Physician Patient Instructions: Migraines (DC) Add. Discharge Instructions: Drink plenty of fluids today to stay well hydrated. It is a good idea to go ahead and take another round of excedrin to help prevent return of headache this morning. Nausea medications have been sent to your pharmacy. Return to the ER for any return of or worsening headache, or other emergent, concerning symptoms. Follow up with your primary care doctor. Scripts Ondansetron (Ondansetron Odt) 4 Mg Tab.rapdis 4 MG PO Q8H PRN for nausea, #20 TAB Prov: JARED DIAZ MD 07/15/21 Copy Copies To 1: TERA BOYD KATHRYN M MD Jul 15, 2021 04:39
[2021-07-15] MEDS ORDERED: NS IV 1000 ML 1,000 ML IV SCH (04:45)
[2021-07-15] MEDS ORDERED: diphenhydrAMINE 50 MG/ML INJ (BENADRYL) IVP ONE (04:45)
[2021-07-15] MEDS ORDERED: PROCHLORPERAZINE 10 MG/2ML INJ (COMPAZINE) IV ONE (04:45)
[2021-07-15] MEDS ORDERED: KETOROLAC 30 MG/ML VIAL IVP ONE (04:45)
[2021-07-15] MEDS ORDERED: ONDA4TAB11 PO (05:37)
[2021-07-15 05:54] VITALS: BP 150/92
[2021-07-15] MEDS ORDERED: BUTA1CAP41 PO ×2 (16:23→16:29)
== END 2021-07-15 05:54 | disposition home or self-care (01) ==
LOC: EDUNIT# 04:17 → ER 04:18
DX: G43.909 Migraine, unspecified, not intractable, without status migrainosus (principal)

== ENCOUNTER 2021-07-15 14:16 | Emergency (ER) | payer MEDICARE, MEDICAID ==
[~2021-07-15] VITALS: Ht 160 cm; Wt 102.0 kg
[~2021-07-15 14:16] MED LIST changes: +ONDA4TAB11 PO
[2021-07-15] MEDS ORDERED: NS IV 1000 ML 1,000 ML IV STA (14:40)
[2021-07-15] MEDS ORDERED: KETOROLAC 30 MG/ML VIAL IVP ONE (14:45)
[2021-07-15] MEDS ORDERED: PROCHLORPERAZINE 10 MG/2ML INJ (COMPAZINE) IV ONE (14:45)
[2021-07-15] MEDS ORDERED: diphenhydrAMINE 50 MG/ML INJ (BENADRYL) IM ONE (14:45)
--- NOTE | 2021-07-15 14:46 | ED Headache ---
General Chief Complaint: Head/Cervical Problems Stated Complaint: MIGRAINE Nursing Triage Note: AMB TO ED WITH HEADACHE SINCE 8A YESTERDAY AM. WAS SEEN EARLY AM TODAY IN ED GIVEN MEDS NOT ANY BETTER. HAD SURG ON SAT BY DR WISE. Source: patient Exam Limitations: no limitations (ARIA WILSON) History of Present Illness Date Seen by Provider: Jul 15, 2021 Time Seen by Provider: 14:42 Initial Comments Patient is a 41-year-old female with a history of migraines who presents ED with head pain. Had pain started around 8:00 yesterday morning when she woke up. Located bitemporal rating down the left side of her neck. Typical type presentation. She does take Topamax daily. Was seen here earlier this morning given medication with some improvement. Typically resolves with Excedrin Migraine. Now pain is radiating down the left side of her back. Sensitive to light and noise. She reports nausea without vomiting or diarrhea. Patient received a migraine cocktail this morning with some improvement. Difficulty sleeping. No recent travels or sick symptoms. Denies of any unilateral muscle weakness, history of stroke, facial droop, chest pain, shortness of breath, cough, fever. Patient with a history of MS. (ARIA WILSON) Allergies and Home Medications Allergies Coded Allergies: mushroom (Verified Allergy, Unknown, 07/04/21) Patient Home Medication List Home Medication List Reviewed: Yes (ARIA WILSON) Acetaminophen (Acetaminophen) 500 Mg Tablet, 1,000 MG PO Q8H PRN for PAIN-MILD (1-4) Prescribed by: HEMA WISE on 07/11/21 1043 Alprazolam (Xanax) 0.25 Mg Tablet, 0.125-0.25 MG PO BID PRN for ANXIETY, (Reported) Entered as Reported by: DULCE SCHAEFER on 10/19/15 1535 Aspirin/Acetaminophen/Caffeine (Excedrin Extra Strength Caplet) 1 Each Tablet, 2 TAB PO BID PRN for MIGRAINE, (Reported) Entered as Reported by: DULCE SCHAEFER on 10/19/15 1543 Butalb/Acetaminophen/Caffeine (Cckvvd-Xpltvrpo-Wokp 50-300-40) 1 Each Capsule, 1 EACH PO Q4H PRN for HEADACHE Prescribed by: LEXIE HODGES on 07/15/21 1646 Cholecalciferol (Vitamin D3) (Vitamin D3) 5,000 Unit Capsule, 5,000 UNIT PO DAILY, (Reported) Entered as Reported by: DULCE SCHAEFER on 10/19/15 1543 Doxepin HCl (Doxepin HCl) 10 Mg Capsule, 10-20 MG PO HS, (Reported) Entered as Reported by: MARLON DURAN on 07/04/21 1507 Duloxetine Hcl (Cymbalta) 60 Mg Capsule.dr, 60 MG PO DAILY, (Reported) Entered as Reported by: DAVID ROSE on 11/09/12 0400 Ibuprofen (Ibu) 600 Mg Tablet, 600 MG PO Q6HR Prescribed by: HEMA WISE on 07/11/21 1043 Levothyroxine Sodium (Levothyroxine Sodium) 125 Mcg Tablet, 125 MCG PO DAILY, (Reported) Entered as Reported by: TITUS MCANIR on 10/17/15 1445 Loratadine (Claritin) 10 Mg Tablet, 10 MG PO HS PRN for ALLERGIES, (Reported) Entered as Reported by: TITUS MCNAIR on 10/17/15 1445 Metoprolol Succinate (Metoprolol Succinate Xl 50 Mg) 50 Mg Tab.sr.24h, 50 MG PO DAILY, (Reported) Entered as Reported by: DAVID ROSE on 11/09/12 0400 Montelukast Sodium (Montelukast Sodium) 10 Mg Tablet, 10 MG PO HS, (Reported) Entered as Reported by: DULCE SCHAEFER on 10/19/15 1535 Omeprazole (Omeprazole) 40 Mg Capsule.dr, 40 MG PO BID, (Reported) Entered as Reported by: TITUS MCNAIR on 10/17/15 1445 Ondansetron (Ondansetron Odt) 4 Mg Tab.rapdis, 4 MG PO Q8H PRN for nausea Prescribed by: JARED DIAZ on 07/15/21 0537 Oxybutynin Chloride (Oxybutynin Chloride ER) 5 Mg Tab.er.24, 5 MG PO DAILY, (Reported) Entered as Reported by: DULCE SCHAEFER on 10/19/15 1535 Oxycodone Hcl (Oxyir Tablet) 5 Mg Tab, 5 MG PO Q4H PRN for PAIN-SEVERE (8-10) Prescribed by: HEMA WISE on 07/11/21 1043 Simvastatin (Simvastatin) 20 Mg Tablet, 40 MG PO DAILY, (Reported) Entered as Reported by: DULCE SCHAEFER on 10/19/151534 Tizanidine HCl (Tizanidine HCl) 4 Mg Tablet, 4 MG PO BID, (Reported) Entered as Reported by: DULCE SCHAEFER on 10/19/15 153 Tizanidine HCl (Tizanidine HCl) 4 Mg Tablet, 4 MG PO 1200 PRN for MUSCLE SPASMS, (Reported) Entered as Reported by: DULCE SCHAEFER on 10/19/15 154 Topiramate (Topiramate) 50 Mg Tablet, 50 MG PO HS, (Reported) Entered as Reported by: DULCE SCHAEFER on 10/19/151534 Discontinued Medications Hydrocodone Bit/Acetaminophen (Lortab 7.5 Mg Tablet) 1 Each Tablet, 1 TAB PO HS PRN for PAIN, (Reported) Discontinued Reason: New Order Entered as Reported by: DULCE SCHAEFER on 10/19/151534 Review of Systems Review of Systems Constitutional: No chills, No diaphoresis, No fever, No malaise Eyes: Denies Drainage, Denies Decreased Acuity, Denies Pain Ears, Nose, Mouth, Throat: denies ear pain, denies ear discharge, denies nose pain, denies nose discharge, denies throat swelling Respiratory: No cough, No dyspnea on exertion, No orthopnea, No short of b reath, No wheezing Cardiovascular: No chest pain, No edema Gastrointestinal: No abdominal pain, No jaundice; nausea; No vomiting Musculoskeletal: No joint pain Skin: No see HPI, No change in color, No change in hair/nails (ARIA WILSON) All Other Systems Reviewed Negative Unless Noted: Yes (ARIA WILSON) Past Makswbc-Vgzvlp-Dvmrjr Hx Patient Social History Tobacco Use?: No Substance use?: No Alcohol Use?: No (ARIA WILSON) Seasonal Allergies Seasonal Allergies: Yes (ARIA WILSON) Past Medical History Surgeries: Yes (several D&C, left ovarian cyst removal. wisdom teeth, bilat foot sx) Gallbladder Respiratory: No Currently Using CPAP: No Currently Using BIPAP: No Cardiac: Yes High Cholesterol, Hypertension Neurological: Yes Headaches /Migraines, Multiple Sclerosis Reproductive Disorders: Yes Female Reproductive Disorders: Ovarian Cyst, Polycystic Ovarian Dis Sexually Transmitted Disease: No HIV/AIDS: No Genitourinary: Yes (OAB) Kidney Stones Gastrointestinal: Yes (GASTRIC PERESIS) Gastroesophageal Reflux, Gall Bladder Disease Musculoskeletal: Yes Fibromyalgia Endocrine: Yes (BORDERLINE TYPE ii DM) Hypothyroidsim HEENT: No Cancer: No Psychosocial: Yes Sleep Difficulties, Anxiety, Depression Integumentary: Yes Psoriasis Blood Disorders: No Adverse Reaction/Blood Tranf: No (ARIA WILSON) Family Medical History Alcoholism 19 FATHER 19 MOTHER grandparents Completed stroke grandparents FH: leukemia 19 FATHER Respiratory disorder grandparents (lung and liver ca) No Pertinent Family Hx (ARIA WILSON) Physical Exam Vital Signs Vital Signs - First Documented 07/15/21 14:27 Temp 36.3 Pulse 95 Resp 18 B/P (MAP) 156/115 (129) Pulse Ox 96 O2 Delivery Room Air (ANGLE CHAPA MD) Vital Signs Capillary Refill : Less Than 3 Seconds (ARIA WILSON) Height, Weight, BMI Height: 5'6.00" Weight: 210lbs. 0.0oz. 95.625626he; 39.00 BMI Method:Stated General Appearance: WD/WN, no apparent distress HEENT: PERRL/EOMI, normal ENT inspection, TMs normal, pharynx normal Neck: non-tender, full range of motion, supple Cardiovascular: regular rate, rhythm, no edema, no gallop, no JVD, no murmur Respiratory: chest non-tender, lungs clear Gastrointestinal: No normal bowel sounds, No non tender, No soft, No no organomegaly Back: No normal inspection, No no CVA tenderness, No no vertebral tenderness Extremities: No normal range of motion, No non-tender, No normal inspection Coordination/Gait: No normal finger to nose, No normal gait, No negative Romberg's sign Motor/Sensory: No no motor deficit, No no sensory deficit, No no pronator drift Skin: normal color, warm/dry (ARIA WILSON) Progress/Results/Core Measures Results/Orders Medications Given in ED Current Medications Medications Dose Ordered Sig/Gilberto Route Start Time Stop Time Status Last Admin Dose Admin Dexamethasone Sodium Phosphate 10 mg ONCE ONCE IM 07/15/21 14:45 07/15/21 14:46 DC 07/15/21 15:00 10 MG Diphenhydramine HCl 25 mg ONCE ONCE IM 07/15/21 14:45 07/15/21 14:46 DC 07/15/21 14:53 25 MG Ketorolac Tromethamine 30 mg ONCE ONCE IVP 07/15/21 14:45 07/15/21 14:46 DC 07/15/21 14:50 30 MG Prochlorperazine Edisylate 10 mg ONCE ONCE IV 07/15/21 14:45 07/15/21 14:46 DC 07/15/21 14:55 10 MG (ANGLE CHAPA MD) Vital Signs/I&O 07/15/21 07/15/21 14:27 16:34 Temp 36.3 Pulse 95 90 Resp 18 18 B/P (MAP) 156/115 (129) 159/89 Pulse Ox 96 98 O2 Delivery Room Air Room Air (ANGLE CHAPA MD) Blood Pressure Mean: 129 Departure Communication (Admissions) Patient is a 41-year-old female with a history of migraines who presents ED with head pain. She was seen here earlier this morning given migraine cocktail with some improvement. Continue symptoms. Today's head pain feels very similar to her migraines. Currently on Topamax. No improvement with Excedrin Migraine at home. Patient has no neurological red flag findings. No unilateral weakness, facial droop, severe worsening head pain, chest pain. No meningeal signs. Normal urination. Patient vital signs stable. Was given migraine cocktail with resolution of head pain. She does have a neurologist who she does follow-up with. Will attempt to discharge with Fioricet to take as a alternative if this head pain continues. If any worsening symptoms return back to ED for further evaluation. (ARIA WILSON) Impression Primary Impression: Migraine Disposition: 01 HOME, SELF-CARE Condition: Stable Departure-Patient Inst. Decision time for Depature: 16:19 (ARIA WILSON) Referrals: TERA BOYD DO (PCP/Family) Primary Care Physician Patient Instructions: Migraines (DC) Scripts Butalb/Acetaminophen/Caffeine (Ktcabp-Oesgrgqa-Malq 50-300-40) 1 Each Capsule 1 EACH PO Q4H PRN for HEADACHE, #8 CAP Prov: ARIA WILSON 07/15/21 ATTENDING PHYSICIAN NOTE: I was physically present as attending physician in the emergency department during the care of this patient, but I was not directly involved in the decision making or delivery of care for this patient. (ANGLE CHAPA MD) ARIA WILSON Jul 15, 2021 14:46 ANGLE CHAPA MD Jul 15, 2021 18:25
[2021-07-15] MEDS ORDERED: BUTA1CAP41 PO ×2 (16:23→16:29)
[2021-07-15 16:34] VITALS: BP 159/89
== END 2021-07-15 16:34 | disposition home or self-care (01) ==
LOC: EDUNIT# 14:16 → ER 14:18
DX: G43.909 Migraine, unspecified, not intractable, without status migrainosus (principal)
CPT/HCPCS: 99281